=== PATIENT | female | born 2000 | race African-American/Black ===

== ENCOUNTER 2025-02-11 08:54 | Emergency (ER) | payer MEDICAID, OTHER ==
[~2025-02-11] VITALS: Ht 160 cm; Wt 50.8 kg
[2025-02-11 09:21] LABS: BASOPHILS % (AUTO) 0.4 % (0.0-2.0); EOSINOPHILS # (AUTO) 0.1 K/uL (0.0-0.7); EOSINOPHILS % (AUTO) 2.9 % (0.0-7.0); HEMATOCRIT 34.7 % (31.2-41.9); HEMOGLOBIN 11.1 g/dL (10.9-14.3); LYMPHOCYTES # (AUTO) 1.3 K/uL (0.8-4.8); MEAN CORPUSCULAR HGB CONC 32 g/dL (32.3-35.6); MEAN CORPUSCULAR VOLUME 84.4 fL (75.5-95.3); MONOCYTES # (AUTO) 0.6 K/uL (0.1-1.30); MONOCYTES % (AUTO) 14.2 % (0.0-11.0); NEUTROPHILS # (AUTO) 2.2 K/uL (1.8-8.9); NEUTROPHILS % (AUTO) 52.5 % (38.5-71.5); PLATELET COUNT (AUTO) 257 K/uL (179-408); RED BLOOD CELL COUNT(AUTO) 4.11 MIL/uL (3.63-4.92); RED CELL DISTRIBUTION WIDTH 17.3 % (12.3-17.7); WHITE BLOOD COUNT (AUTO) 4.2 K/uL (3.8-11.8)
[2025-02-11 09:28] LABS: CALCIUM 8.9 mg/dL (8.5-10.1); CREATININE 0.9 mg/dL (0.6-1.3); POTASSIUM 4.4 mmol/L (3.5-5.1)
[2025-02-11 09:31] LABS: DIFFERENTIAL COMMENT 1
[2025-02-11 09:34] LABS: ALBUMIN 3.8 g/dL (3.4-5.0); BILIRUBIN,DIRECT 0.1 mg/dL (0.0-0.2); BILIRUBIN,TOTAL 0.3 mg/dL (0.2-1.0); TOTAL PROTEIN, SERUM 7.7 g/dL (6.4-8.2)
[2025-02-11 10:18] LABS: *URINE HCG, QUAL NEGATIVE (NEGATIVE)
[2025-02-11] MEDS ORDERED: DICYCLOMINE HCL LIQ 10 MG/5 ML UDC ONE (11:37)
[2025-02-11] MEDS: DICYCLOMINE HCL 10 MG CAPSULE PO ONE (11:38)
[2025-02-11] MEDS ORDERED: KETOROLAC TROMETHAMINE 30 MG INJ ONE (12:33)
[2025-02-11] MEDS: IV NORMAL SALINE 1000 ML BAG IV ONE (12:43)
[2025-02-11] MEDS: KETOROLAC TROMETHAMINE 15 MG INJ IVP ONE (12:43)
[2025-02-11] MEDS ORDERED: LACT10SO58 PO (12:54)
[2025-02-11] MEDS ORDERED: HYOS0.1286 SL (12:54)
[2025-02-11 14:09] VITALS: BP 101/77; O2SAT 98
== END 2025-02-11 14:09 | disposition home or self-care (01) ==
LOC: ER 08:58
DX: R55 Syncope and collapse (principal); R10.32 Left lower quadrant pain; R10.2 Pelvic and perineal pain
CPT/HCPCS: 99285; 96374; 76856; 96361; 80076; 80048; 84703; 85025; 36415; 74018; 93005; J1885; J7040; A4606; A4663